=== PATIENT | female | born 1940 | race Two or more races ===

== ENCOUNTER 2024-05-30 16:49 | Inpatient (IN) | payer MEDICARE, MEDICAID ==
[~2024-05-30] VITALS: Ht 157.5 cm; Wt 97.7 kg
--- NOTE | 2024-05-30 17:08 | ED.PDOC ---
HPI (NEURO) HPI Comments 81 year old female presents to the ED with chief complaint of headache. Patient reports that she has been experiencing a headache to her whole head for the past few days. Patient relays that she has history of prefrontal aneurysm and follows up with a neurologist for this problem, however, the pain she is currently feeling is not the same type as she has had before. Patient denies any N/V, blurred vision, chest pain, SOB, dizziness, numbness, or weakness. Patient at arrival had a blood pressure of 187/93 and a temperature of 100.1 Time Seen by MD: 17:05 Reviewed Notes: Nurses Notes, Medications, Allergies Information Source: Patient Mode of Arrival: Ambulatory Severity: Moderate Headache Severity: Moderate Timing: Days Duration: Since onset Prehospital treatment: None Headache Quality: Sharp Headache Location: Generalized Onset: At rest Circumstances: Spontaneous Symptoms: None History of: Known Headache Disorder Modifying factors: Nothing Associated Signs and Symptoms: Headache Past Medical History PAST MEDICAL HISTORY: HTN Past Medical History (Other): Prefrontal Aneurysm Surgical History: Denies all surgeries SPECIAL SERVICES DIRECTOR History: No Pertinent SPECIAL SERVICES DIRECTOR History Family History Family History: Reviewed,noncontributory to illness Social History Smoker: Non-Smoker Alcohol: Denies ETOH Use Drugs: Denies Drug Use Lives In: Home Constitutional: reports: fever, weakness; denies: chills, diaphoresis, fatigue, malaise, sweats, others EENTM: denies: blurred vision, double vision, ear bleeding, ear discharge, ear drainage, ear pain, ear ringing, eye pain, eye redness, hearing loss, mouth pain, mouth swelling, nasal discharge, nose bleeding, nose congestion, nose pain, photophobia, tearing, throat pain, throat swelling, voice changes, others Respiratory: denies: cough, hemoptysis, orthopnea, SOB at rest, shortness of breath, SOB with excertion, stridor, wheezing, others Cardiovascular: denies: chest pain, dizzy spells, diaphoresis, Dyspnea on exertion, edema, irregular heart beat, left arm pain, lightheadedness, palpitations, PND, syncope, others Gastrointestinal: denies: abdomen distended, abdominal pain, blood streaked bowels, constipated, diarrhea, dysphagia, difficulty swallowing, hematemesis, melena, nausea, poor appetite, poor fluid intake, rectal bleeding, rectal pain, vomiting, others Genitourinary: denies: abnormal vagina bleeding, burning, dyspareunia, dysuria, flank pain, frequency, hematuria, incontinence, pain, , vagina discharge, urgency, others Neurological: reports: headache; denies: dizziness, fainting, left sided numbness, left sided weakness, numbness, paresthesia, pre-existing deficit, right sided numbness, right sided weakness, seizure, speech problems, tingling, tremors, weakness, others Musculoskeletal: denies: back pain, gout, joint pain, joint swelling, muscle pain, muscle stiffness, neck pain, others Integumetry: denies: bruises, change in color, change in hair/nails, dryness, laceration, lesions, lumps, rash, wounds, others Allergic/Immunocompromised: denies: Difficulty Healing, Frequent Infections, Hives, Itching, others Hematologic/Lymphatic: denies: anemia, blood clots, easy bleeding, easy bruising, swollen glands, others Endocrine: denies: excessive hunger, excessive sweating, excessive thirst, excessive urination, flushing, intolerance to cold, intolerance to heat, unexplained weight gain, unexplained weight loss, others Psychiatric: denies: anxiety, bipolar disorder, depression, hopeless, panic disorder, schizophrenia, sleepless, suicidal, others All Other Systems: Reviewed and Negative Physical Exam General Appearance: Moderate Distress (Moderate distress due to headache concerns. Patient appears to be in poor overall health.), Obese HEENT: Head (Cranial exam unremarkable. No signs of trauma. No skull depressions or deformities.), Normal ENT Inspection, Pharynx Normal, TMs Normal Neck: Full Range of Motion, Non-Tender, Normal, Normal Inspection Respiratory: Chest Non-Tender, Lungs Clear, No Accessory Muscle Use, No Respiratory Distress, Normal Breath Sounds Cardiovascular: No Edema, No JVD, No Murmur, No Gallop, Normal Peripheral Pulses, Regular Rate/Rhythm Breast Exam: Deferred Gastrointestinal: No Organomegaly, Non Tender, No Pulsatile Mass, Normal Bowel Sounds, Soft Genitalia: Deferred Pelvic: Deferred Rectal: Deferred Extremities: No calf tenderness, Normal capillary refill, Normal inspection, Normal range of motion, Non-tender, No pedal edema Neurologic: Alert, No Motor Deficits, Normal Affect, Normal Mood, No Sensory Deficits Cerebellar Function: Normal Reflexes: Normal Skin: Dry, Normal Color, Warm Lymphatic: No Adenopathy Was a procedure done? Was a procedure done?: No Differential Diagnosis (SZ) Seizure: Hyperventilation, Closed Head Injury, CVA/TIA, Idiopathic, Mass Lesion General Weakness: Anemia, Dehydration, Encephalopathy X-Ray, Labs, Meds, VS Vital Signs Date Time Temp Pulse Resp B/P (MAP) Pulse Ox O2 Delivery O2 Flow Rate FiO2 05/30/24 22:10 63 20 98 Room Air* 0 21 05/30/24 22:10 98.0 63 20 196/77 (116) 98 98.0 05/30/24 17:33 66 05/30/24 17:18 100.1 73 16 187/93 (124) 97 100.1 Lab Test 05/30/24 22:15 05/30/24 17:21 Range/Units Urine Color Light-yellow Yellow Urine Clarity Turbid H Clear Urine pH 5.5 5.0-9.0 Urine Specific [place] 1.018 1.001-1.035 Urine Protein Negative Negative Urine Ketones Negative Negative Urine Blood Negative Negative /uL Urine Nitrite Negative Negative Urine Bilirubin Negative Negative Urine Urobilinogen Normal Negative mg/dL Urine Leukocyte Esterase 3+ Negative /uL Urine RBC 4 0 - 4 /hpf Urine Microscopic WBC 26 H 0-5 /HPF Urine Squamous Epithelial Cells Few <5 /hpf Urine Bacteria None seen None Seen /hpf Urine Mucus Few None Seen Urine Glucose Normal Normal mg/dL White Blood Count 4.5 4.4-10.8 10^3/uL Red Blood Count 4.52 4.0-5.20 10^6/uL Hemoglobin 12.6 12.2-16.2 g/dL Hematocrit 37.7 36.0-46.0 % Mean Corpuscular Volume 83.3 80.0-100.0 fL Mean Corpuscular Hemoglobin 27.9 L 28.0-32.0 pg Mean Corpuscular Hemoglobin Concent 33.5 32.0-36.0 g/dL Red Cell Distribution Width 14.5 H 11.8-14.3 % Platelet Count 198 140-450 10^3/uL Mean Platelet Volume 8.8 6.9-10.8 fL Neutrophils (%) (Auto) 56.8 37.0-80.0 % Lymphocytes (%) (Auto) 30.9 10.0-50.0 % Monocytes (%) (Auto) 7.7 0.0-12.0 % Eosinophils (%) (Auto) 4.0 0.0-7.0 % Basophils (%) (Auto) 0.6 0.0-2.0 % Neutrophils # (Auto) 2.5 1.6-8.6 10 ^3/uL Lymphocytes # (Auto) 1.4 0.4-5.4 10 ^3/uL Monocytes # (Auto) 0.3 0-1.3 10 ^3/uL Eosinophils # (Auto) 0.2 0-0.8 10 ^3/uL Basophils # (Auto) 0 0-0.2 10 ^3/uL Nucleated Red Blood Cells 0.1 % Sodium Level 139 136-145 mmol/L Potassium Level 4.8 3.5-5.1 mmol/L Chloride Level 109 H 98-107 mmol/L Carbon Dioxide Level 23 20-31 mmol/L Anion Gap 7 5-15 Blood Urea Nitrogen 26 H 9-23 mg/dL Creatinine 1.10 H 0.550-1.02 mg/dL Glomerular Filtration Rate Calc 51 >90 mL/min BUN/Creatinine Ratio 23.6 H 10.0-20.0 Serum Glucose 94 74-106 mg/dL Calcium Level 9.6 8.7-10.4 mg/dL Total Bilirubin 0.3 0.2-1.0 mg/dL Aspartate Amino Transferase (AST) 13 13-40 U/L Alanine Aminotransferase (ALT) 11 7-40 U/L Alkaline Phosphatase 97 46-116 U/L Troponin I High Sensitivity 15 </=34 ng/L Total Protein 6.4 5.7-8.2 g/dL Albumin 4.4 3.2-4.8 g/dL Current Medications Medications (Trade) Dose Ordered Sig/Hector Route Start Time Stop Time Status Last Admin Acetaminophen/ Hydrocodone Bitart ([place] 5/325MG Tab) 1 tab ONCE ONCE PO 05/30/24 17:15 05/30/24 17:16 DC 05/30/24 22:[address] [address] Ph: [phone] DIAGNOSTIC IMAGING Diagnostic Imaging Report : [id number] Signed PATIENT: TABATHA PATEL ACCT: [id number] UNIT: [id number] : 09/05/1942 LOC: ER ROOM / BED: / AGE / SEX: 81 / F ADM STATUS: REG ER SERVICE 1701 ORDERING PHYSICIAN: NANI MONSIVAIS PAC PROCEDURE(s): HWOCT - HEAD WITHOUT CONTRAST REASON: Headache evaluation ORDER NUMBER(s): [id number], ACCESSION NUMBER(s): [id number] EXAM: CT HEAD WITHOUT CONTRAST INDICATION: Headache evaluation TECHNIQUE: CT of the head without intravenous contrast. Radiation Dose Information: CT Dose: CTDI volume is 50.7 mGy. Dose-length product is 711.48 mGy*cm The dose indicators for CT are the volume Computed Tomography (CT) Dose Index (CTDIvol) and the Dose Length Product (DLP), and are measured in units of mGy an d mGy-cm, respectively. These indicators are not patient dose, but values generated from the CT scanner acquisition factors. The report includes radiation exposure data for exposures received during this examination. COMPARISON: None FINDINGS: There is no evidence of acute intracranial hemorrhage, extra-axial collection, mass effect, midline shift, herniation or hydrocephalus. The ventricles, sulci and cisterns are age appropriate. The fox-white differentiation is intact. Patchy periventricular and subcortical white matter hypoattenuation is nonspecific but may be related to small vessel ischemic disease. The visualized paranasal sinuses and mastoid air cells are clear. The surrounding soft tissues and osseous structures are unremarkable. IMPRESSION: 1. No acute intracranial hemorrhage 2. No paranasal sinus disease; no mastoid disease. 3. No CT findings of territorial ischemia HS:Y ATED BY: SAAD ROSADO Jr., DO DICTATED DATE/TIME: 05/30/241803 SIGNED BY: SAAD ROSADO Jr., SIGNED DATE/TIME: 05/30/241803 CC: X-Ray, Labs, Meds, VS Comment All studies performed the ED were evaluated by me personally. EKG revealed a sinus rhythm with a rate of 66. Low voltage in precordial leads noted. NC interval of 177 and QT interval of 397. Serum laboratories were unremarkable, but urinalysis confirmed a large urinary tract infection. Patient is blood pressure was concerning at arrival and the patient is a poor historian as the CT did not confirm any form of aneurysm. No acute intracranial process noted. Patient to be admitted for urosepsis concerns as well as hypertensive emergency issues. Was patient should receive IV antibiotics and cardiac evaluation for what appears to be poorly controlled blood pressure concerns. Time of 1ST Reevaluation: 23:24 Reevaluation 1ST: Improved Consultation: PCP, Cardiology Patient Education/Counseling: Diagnosis, Treatment Family Education/Counseling: Diagnosis, Treatment, No Family Present Departure 1 Departure Time of Disposition: 23:24 Impression: Primary Impression: Urinary tract infection Additional Impression: Hypertensive urgency Disposition: ADMITTED INPATIENT Condition: Stable Discharged With: Self Critical Care Note Critical Care Time?: No Stability Stability form required: No Heart Score Heart Score: Heart Score Response (Comments) Value History Slightly Suspicious 0 EKG Normal 0 Age >65 2 Risk Factors 1 or 2 risk factors 1 Troponin Normal limit 0 Total 3 I personally scribed for NANI MONSIVAIS PAC ([email or web address]) on 05/30/24 at 17:08. Electronically submitted by Jaxon Marte ([email or web address]). I personally scribed for NANI MONSIVAIS PAC ([email or web address]) on 05/30/24 at 22:20. Electronically submitted by Wade Erazo ([email or web address]). NANI MONSIVAIS PAC May 30, 2024 17:08
[2024-05-30 17:28] LABS: Basophils # (auto) 0 10 ^3/uL (0-0.2); Basophils % (auto) 0.6 % (0.0-2.0); Eosinophils # (auto) 0.2 10 ^3/uL (0-0.8); Hematocrit 37.7 % (36.0-46.0); Hemoglobin 12.6 g/dL (12.2-16.2); Lymphocytes # (auto) 1.4 10 ^3/uL (0.4-5.4); Lymphocytes % (auto) 30.9 % (10.0-50.0); Mean Corpuscular Hemoglobin 27.9 pg (28.0-32.0); Mean Corpuscular Hgb Conc. 33.5 g/dL (32.0-36.0); Mean Corpuscular Volume 83.3 fL (80.0-100.0); Monocytes # (auto) 0.3 10 ^3/uL (0-1.3); Monocytes % (auto) 7.7 % (0.0-12.0); Neutrophils # (auto) 2.5 10 ^3/uL (1.6-8.6); Neutrophils % (auto) 56.8 % (37.0-80.0); Nucleated Red Blood Cells % 0.1 %; Platelet Count (auto) 198 10^3/uL (140-450); Red Blood Cells 4.52 10^6/uL (4.0-5.20); Red Cell Distribution Width 14.5 % (11.8-14.3); White Blood Cell 4.5 10^3/uL (4.4-10.8)
--- NOTE | 2024-05-30 17:34 | ECG ---
[facility] Test Date: 2024-05-30 Test Time: 17:33:45 Pat Name: TABATHA PATEL Department: ER Room: 0274T Gender: F Algology Teacher: YARITZA : 1940 Requested By: NANI MONSIVAIS Order Number: [id number] Reading MD: Fabrice Altamirano Measurements Intervals [place] Rate: 66 P: 119 WA: 177 QRS: 66 QRSD: 81 T: 24 QT: 397 QTc: 416 Interpretive Statements Sinus rhythm Low voltage, precordial leads Electronically Signed On 06-01-2024 20:32:21 PDT by Fabrice Altamirano Please click the below link to view image of tracing.
[2024-05-30 17:49] LABS: Alanine Aminotransferase 11 U/L (7-40); Albumin 4.4 g/dL (3.2-4.8); Alkaline Phosphatase 97 U/L (46-116); Anion Gap 7 (5-15); Aspartate Aminotransferase 13 U/L (13-40); BUN/Creatinine Ratio 23.6 (10.0-20.0); Bilirubin, Total 0.3 mg/dL (0.2-1.0); Blood Urea Nitrogen 26 mg/dL (9-23); Calcium 9.6 mg/dL (8.7-10.4); Carbon Dioxide 23 mmol/L (20-31); Chloride 109 mmol/L (98-107); Glucose 94 mg/dL (74-106); Potassium 4.8 mmol/L (3.5-5.1); Sodium 139 mmol/L (136-145); Total Protein 6.4 g/dL (5.7-8.2)
--- NOTE | 2024-05-30 18:07 | DVH ---
EXAM: CT HEAD WITHOUT CONTRAST INDICATION: Headache evaluation TECHNIQUE: CT of the head without intravenous contrast. Radiation Dose Information: CT Dose: CTDI volume is 50.7 mGy. Dose-length product is 711.48 mGy*cm The dose indicators for CT are the volume Computed Tomography (CT) Dose Index (CTDIvol) and the Dose Length Product (DLP), and are measured in units of mGy and mGy-cm, respectively. These indicators are not patient dose, but values generated from the CT scanner acquisition factors. The report includes radiation exposure data for exposures received during this examination. COMPARISON: None FINDINGS: There is no evidence of acute intracranial hemorrhage, extra-axial collection, mass effect, midline s hift, herniation or hydrocephalus. The ventricles, sulci and cisterns are age appropriate. The fox-white differentiation is intact. Patchy periventricular and subcortical white matter hypoattenuation is nonspecific but may be related to small vessel ischemic disease. The visualized paranasal sinuses and mastoid air cells are clear. The surrounding soft tissues and osseous structures are unremarkable. IMPRESSION: 1. No acute intracranial hemorrhage 2. No paranasal sinus disease; no mastoid disease. 3. No CT findings of territorial ischemia HS:Y
[2024-05-30 22:10] VITALS: PULSE 63; RESP 20; O2SAT 98
[2024-05-30] MEDS: HYDROcodone-ACET 5/325MG TAB PO ONE (22:25)
[2024-05-30 22:33] LABS: Urine Bacteria None Seen /hpf (None Seen)
[2024-05-30 22:45] LABS: Urine Blood Negative /uL (Negative); Urine Clarity Turbid (Clear); Urine Color Light-Yellow (Yellow); Urine Mucus FEW (None Seen); Urine Protein, UAD Negative (Negative); Urine Specific Gravity 1.018 (1.001-1.035); Urine Squamous Epithelial Cell FEW /hpf (<5); Urine Urobilinogen Normal (Negative); Urine WBC 26 /HPF (0-5); Urine pH 5.5 (5.0-9.0)
--- NOTE | 2024-05-30 23:50 | DVHHPRES ---
History of Present Illness Resident Creating Document: YOLANDA LA RESIDENT History of Present Illness Ms Love is a 83 year old female with past medical history of hypertension, frontal lobe aneurysm, chronic nicotine dependence who presented to the ER with a chief complaint of blurred vision and blackouts for the past 3 days. Reports that her sister recently a month back when she started having headache which are left-sided and frontal lobe region. For the past 3 days, patient has been experiencing blurred vision, and blackout but did not experience any fall or syncopal event. Patient also forgot her daughter's name at 1 point. She reports compliance to her blood pressure medication. Denies any neurological symptoms including weakness, numbness or tingling or sensory loss in the upper and lower extremity. Denies difficulty swallowing, chest pain, palpitations, diaphoresis, nausea vomiting. She reports that her blood pressure was elevated this morning when she checked, she usually takes valsartan 160 mg daily. Patient took double dose of her antihypertensive today. On arrival, in her blood pressure of 187/90 mmHg, 101 F fever, creatinine was 1.1. Past medical history:hypertension, frontal lobe aneurysm, current nicotine dependence Social history: Lives with : Quit smoking (smoked half a pack a day for the past 40 yea), denies drinking, denies illicit drug use Home medications, valsartan 160 mg daily PCP MEDINA Arora Patient seen and examined in the ER. Reports headache. CT head unremarkable. MRI brain pending. Patient received 2 doses of clonidine 0.1 mg p.o by the ER physician, which decreased her pressure. Holding IV nitroglycerin drip Smoke: Quit ALCOHOL: none Drugs: None Lives: with Family Review of Systems Eyes: Vision change Neurological: Confusion Allergies: Coded Allergies: NO KNOWN ALLERGIES (Unverified , 05/30/24) Exam Vital Signs Vital Signs Date Time Temp Pulse Resp B/P (MAP) Pulse Ox O2 Delivery O2 Flow Rate FiO2 05/30/24 22:10 63 20 98 Room Air* 0 21 05/30/24 22:10 98.0 196/77 (116) 98.0 Exam Elevation sitting comfortably in the chair in ER, no acute distress General: Well-built, afebrile, mucosae are moist Cardiovascular: Regular S1 and S2. No murmurs, gallops or rubs. No JVD elevation. 1+ Pitting pedal edema. Respiratory: Normal B/L air entry on room air. Clear lung sounds on auscultation Abdomen: Soft, nontender, nondistended, normoactive bowel sounds, no rebound tenderness, no organomegaly, no masses Genitourinary: Deferred MSK/skin: Mobilizes 4 limbs. Skin is dry and warm Neurological: No motor, no sensitive deficits, normal speech. Pupils are isocoric and reactive. Psych/Mental Status: A/Ox3 Labs/Xrays Labs Test 05/30/24 22:15 05/30/24 17:21 Range/Units Urine Color Light-yellow Yellow Urine Clarity Turbid H Clear Urine pH 5.5 5.0-9.0 Urine Specific [place] 1.018 1.001-1.035 Urine Protein Negative Negative Urine Ketones Negative Negative Urine Blood Negative Negative /uL Urine Nitrite Negative Negative Urine Bilirubin Negative Negative Urine Urobilinogen Normal Negative mg/dL Urine Leukocyte Esterase 3+ Negative /uL Urine RBC 4 0 - 4 /hpf Urine Microscopic WBC 26 H 0-5 /HPF Urine Squamous Epithelial Cells Few <5 /hpf Urine Bacteria None seen None Seen /hpf Urine Mucus Few None Seen Urine Glucose Normal Normal mg/dL White Blood Count 4.5 4.4-10.8 10^3/uL Red Blood Count 4.52 4.0-5.20 10^6/uL Hemoglobin 12.6 12.2-16.2 g/dL Hematocrit 37.7 36.0-46.0 % Mean Corpuscular Volume 83.3 80.0-100.0 fL Mean Corpuscular Hemoglobin 27.9 L 28.0-32.0 pg Mean Corpuscular Hemoglobin Concent 33.5 32.0-36.0 g/dL Red Cell Distribution Width 14.5 H 11.8-14.3 % Platelet Count 198 140-450 10^3/uL Mean Platelet Volume 8.8 6.9-10.8 fL Neutrophils (%) (Auto) 56.8 37.0-80.0 % Lymphocytes (%) (Auto) 30.9 10.0-50.0 % Monocytes (%) (Auto) 7.7 0.0-12.0 % Eosinophils (%) (Auto) 4.0 0.0-7.0 % Basophils (%) (Auto) 0.6 0.0-2.0 % Neutrophils # (Auto) 2.5 1.6-8.6 10 ^3/uL Lymphocytes # (Auto) 1.4 0.4-5.4 10 ^3/uL Monocytes # (Auto) 0.3 0-1.3 10 ^3/uL Eosinophils # (Auto) 0.2 0-0.8 10 ^3/uL Basophils # (Auto) 0 0-0.2 10 ^3/uL Nucleated Red Blood Cells 0.1 % Sodium Level 139 136-145 mmol/L Potassium Level 4.8 3.5-5.1 mmol/L Chloride Level 109 H 98-107 mmol/L Carbon Dioxide Level 23 20-31 mmol/L Anion Gap 7 5-15 Blood Urea Nitrogen 26 H 9-23 mg/dL Creatinine 1.10 H 0.550-1.02 mg/dL Glomerular Filtration Rate Calc 51 >90 mL/min BUN/Creatinine Ratio 23.6 H 10.0-20.0 Serum Glucose 94 74-106 mg/dL Calcium Level 9.6 8.7-10.4 mg/dL Total Bilirubin 0.3 0.2-1.0 mg/dL Aspartate Amino Transferase (AST) 13 13-40 U/L Alanine Aminotransferase (ALT) 11 7-40 U/L Alkaline Phosphatase 97 46-116 U/L Troponin I High Sensitivity 15 </=34 ng/L Total Protein 6.4 5.7-8.2 g/dL Albumin 4.4 3.2-4.8 g/dL Assessment/Plan Assessment/Plan Rule out stroke Hypertensive encephalopathy Sepsis secondary to acute cystitis Acute Cystitis VIVI, likely vasomotor mediated History of frontal cerebral aneurysm Plan: EKg Shows NSR. Tropes WNL. CT head unremarkable. Follow up with the MRI brain, carotid duplex, echocardiogram, renal artery ultrasound Continue aspirin 81 mg daily, atorvastatin 40 mg daily IV nitroglycerin drip started 05/31 IV Ceftriaxone 1 g daily, blood culture pending Home medication valsartan 160 mg daily Patient received 2 doses of clonidine 0.1 mg p.o by the ER physician, which decreased her pressure. Holding IV nitroglycerin drip DVT prophylaxis SCDs Protonix 40 mg daily Plan discussed with patient in which all questions have been answered Goals of care discussed for more than 20 minutes, full code status Case discussed with Dr. Malone Plan discussed with: Patient Date of Service: May 30, 2024 Billing Provider: RAISA MALONE MD Common Visit Codes: [id number] INP/OBS CARE (HIGH) YOLANDA LA RESIDENT May 30, 2024 23:50
[2024-05-31] MEDS ORDERED: HYDROcodone-ACET 5/325MG TAB PO PRN (00:30)
[2024-05-31] MEDS ORDERED: MORPHINE SULFATE INJ 2 MG/ml SYRG IV PRN (00:30)
[2024-05-31] MEDS ORDERED: ACETAMINOPHEN 500 MG TAB or CAP PO PRN (00:30)
--- NOTE | 2024-05-31 00:46 | DVH ---
CHEST RADIOGRAPH Indication: htn Technique: Single frontal view of the chest was obtained COMPARISON: None FINDINGS: Lines and Tubes: None Lungs: Clear Pleura: No effusion. No pneumothorax. Cardiomediastinal contours: Unremarkable Bones: Unremarkable IMPRESSION: 1. No acute disease.
[2024-05-31] MEDS: cefTRIAXone 1GM/50ML D5W 50 ML IV ONE (01:10)
[2024-05-31] MEDS: ASPirin-EC 81 mg tab PO ONE (01:10)
[2024-05-31] MEDS: cloNIDine HCL 0.1 MG TAB PO ONE (01:11)
[2024-05-31] MEDS: ACETAMINOPHEN 325 MG TAB PO ONE (01:20)
[2024-05-31 01:47] LABS: COVID19 ANTIGEN SOFIA FIA NEGATIVE (NEGATIVE)
[2024-05-31 01:48] LABS: Rapid Influenza A Negative (Negative); Rapid Influenza B Negative (Negative)
[2024-05-31] MEDS: ATORVASTATIN 20 MG TAB PO ONE (02:09)
[2024-05-31] MEDS: PANTOPRAZOLE 40 MG/10 ML VIAL INJ IV ONE (02:09)
[2024-05-31] MEDS ORDERED: ASPI1TAB20 PO (03:06)
[2024-05-31] MEDS ORDERED: VALS1TAB58 PO (03:06)
[2024-05-31 04:49] LABS: Uric Acid 4.3 mg/dL (3.1-7.8)
[2024-05-31 04:50] LABS: Magnesium 1.8 mg/dL (1.6-2.6)
[2024-05-31 04:51] LABS: INR 1.03 (0.9-1.15); Partial Thromboplastin Time 28.9 SEC (24.5-34.5); Prothrombin Time 10.9 sec (9.3-11.8)
[2024-05-31] MEDS: KETOROLAC TROMETH 30 MG/ML 1ML VIAL IV ONE (07:30)
[2024-05-31] MEDS: NITROGLYCERIN 50MG/250ML 250 ML IV SCH (07:30)
[2024-05-31 08:30] VITALS: PULSE 60; RESP 13; O2SAT 98
[2024-05-31] MEDS: CYANOCOBALAMIN (B-12) 1000 MCG/1 ML VIAL IM ONE (09:44)
[2024-05-31] MEDS: VALSARTAN 80 MG TAB PO SCH (11:57)
[2024-05-31] MEDS: ASPirin-EC 81 mg tab PO SCH (11:57)
--- NOTE | 2024-05-31 13:22 | DVH ---
PROCEDURE: MRI BRAIN HEAD WO CONTRAST INDICATION: r/o mass, stroke. blurred vision, black outs EXAM DATE: 05/31/2024 12:02 PM COMPARISON: None TECHNIQUE: MRI of the brain without intravenous contrast. Comments: There is mild motion artifact. FINDINGS: Diffusion weighted images of the brain demonstrate no evidence of acute infarction. There is no evidence of acute intracranial hemorrhage, extra-axial collection, mass effect, midline s hift, herniation or hydrocephalus. The ventricles, sulci and cisterns appear age appropriate. Partially empty sella is likely age relate d. There are no signal abnormalities on the susceptibility weighted sequences. The major vascular flow voids are present. The visualized paranasal sinuses and mastoid air cells are clear. The surrounding soft tissues and o sseous structures are unremarkable. Bilateral lens replacements. IMPRESSION: No evidence of acute intracranial abnormalities.
--- NOTE | 2024-05-31 13:46 | DVH ---
Carotid Duplex Clinical History: blackouts, blurred vison HTN Comparison: None Technique: Duplex Doppler evaluation of the extracranial carotid and vertebral arteries including color Doppler and spectral/pulsed waveform analysis was performed. Findings: RIGHT SIDE: The peak systolic velocities are 56 cm/s in the CCA, 123 cm/s in the ICA. The ICA/CCA ratio is 2.2. Visually there is mild atherosclerotic plaque at the carotid bulb. The external carotid artery is patent with peak systolic velocity of 52 cm/s proximally. There is appropriate antegrade flow in the right vertebral artery. LEFT SIDE: The peak systolic velocities are 61 cm/s in the CCA, 115 cm/s in the ICA. The ICA/CCA ratio is 1.9. Visually there is mild atherosclerotic plaque at the carotid bulb. The external carotid artery is patent with peak systolic velocity of 62 cm/s proximally. There is appropriate antegrade flow in the left vertebral artery. IMPRESSION: 1. Suggestion of 50-69% narrowing at the right carotid bulb based on the ICA/ CCA ratio. 2. Less than 50% narrowing at the left carotid bulb. Reference: Radiology 2003; 229:340-346 Normal ICA PSV is <125 cm/sec and no plaque or intimal thickening is visible sonographically additional criteria include ICA/CCA PSV ratio <2.0 and ICA EDV <40 cm/sec <50% ICA stenosis ICA PSV is <125 cm/sec and plaque or intimal thickening is visible sonographically additional criteria include ICA/CCA PSV ratio <2.0 and ICA EDV <40 cm/sec 50-69% ICA stenosis ICA PSV is 125-230 cm/sec and plaque is visible sonographically additional criteria include ICA/CCA PSV ratio of 2.0-4.0 and ICA EDV of 40-100 cm/sec 70% ICA stenosis but less than near occlusion ICA PSV is >230 cm/sec and visible plaque and luminal narrowing are seen at fox-scale and color Dopp ler ultrasound (the higher the Doppler parameters lie above the threshold of 230 cm/sec, the greater the likelihood of severe disease) additional criteria include ICA/CCA PSV ratio >4 and ICA EDV >100 cm/sec
--- NOTE | 2024-05-31 14:29 | DVHPN2 ---
Reviewed: Care Plan, H&P, Labs, Medications, Previous Orders, Radiology Changes from previous H/P or p: No Changes Eyes: Vision change Objective Vitals Vital Signs Date Time Temp Pulse Resp B/P (MAP) Pulse Ox O2 Delivery O2 Flow Rate FiO2 05/31/24 11:57 132/54 05/31/24 10:00 55 12 98 05/31/24 08:30 Room Air* 0 21 05/31/24 08:00 98.0 98.0 Medications Current Medications Medications Dose Ordered Sig/Hector Route Start Time Stop Time Status Last Admin Dose Admin Nitroglycerin 250 ml @ 1.5 mls/hr Q24H IV 05/31/24 00:15 Aspirin 81 mg DAILY PO 05/31/24 10:00 05/31/24 11:57 81 MG Valsartan 160 mg DAILY PO 05/31/24 10:00 05/31/24 11:57 160 MG Acetaminophen 500 mg Q4HPRN PRN PO 05/31/24 00:30 Acetaminophen/ Hydrocodone Bitart 1 tab Q4HPRN PRN PO 05/31/24 00:30 Morphine Sulfate 1 mg Q4HPRN PRN IV 05/31/24 00:30 Atorvastatin Calcium 40 mg HS PO 05/31/24 22:00 Pantoprazole Sodium 40 mg DAILY IV 06/01/24 10:00 Laboratory Results Laboratory Tests 05/30/24 17:21 Chemistry Test 05/30/24 17:21 05/31/24 03:52 Albumin 4.4 g/dL (3.2-4.8) Calcium Level 9.6 mg/dL (8.7-10.4) Total Protein 6.4 g/dL (5.7-8.2) Magnesium Level 1.8 mg/dL (1.6-2.6) Coagulation Test 05/31/24 03:52 Prothrombin Time 10.9 sec (9.3-11.8) Prothrombin Time INR 1.03 (0.9-1.15) Activated Partial Thromboplast Time 28.9 SEC (24.5-34.5) Cardiac Markers Test 05/31/24 03:52 B-Type Natriuretic Peptide 60.93 pg/mL (0-100) LFT Test 05/30/24 17:21 Alanine Aminotransferase (ALT) 11 U/L (7-40) Alkaline Phosphatase 97 U/L (46-116) Aspartate Amino Transferase (AST) 13 U/L (13-40) Total Bilirubin 0.3 mg/dL (0.2-1.0) HgA1c, TSH Test 05/31/24 03:52 Hemoglobin A1c 5.4 % A1C (<5.7) Thyroid Stimulating Hormone (TSH) 3.04 uIU/mL (0.55-4.78) Urinalysis Test 05/30/24 22:15 Urine Color Light-yellow (Yellow) Urine Clarity Turbid (Clear) H Urine pH 5.5 (5.0-9.0) Urine Specific [place] 1.018 (1.001-1.035) Urine Protein Negative (Negative) Urine Ketones Negative (Negative) Urine Blood Negative /uL (Negative) Urine Nitrite Negative (Negative) Urine Bilirubin Negative (Negative) Urine Urobilinogen Normal mg/dL (Negative) Urine Leukocyte Esterase 3+ /uL (Negative) Urine RBC 4 /hpf (0 - 4) Urine Microscopic WBC 26 /HPF (0-5) H Urine Squamous Epithelial Cells Few /hpf (<5) Urine Bacteria None seen /hpf (None Seen) Urine Mucus Few (None Seen) Urine Glucose Normal mg/dL (Normal) Labs and/or images reviewed: Labs reviewed by me, Image(s) reviewed by me Assessment/Plan Assessment/Plan Blurry vision rule out stroke: CT head negative, MRI brain negative, 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 Cuellar History of frontal aneurysm Hypertension Chronic current smoker: Counseling Flu test negative COVID test negative Mild UTI Plan discussed with: Patient Date of Service: May 31, 2024 Billing Provider: ROSITA SUBRAMANIAN MD Common Visit Codes: [id number] INP/OBS CARE(HIGH) ROSITA SUBRAMANIAN MD May 31, 2024 14:29
--- NOTE | 2024-05-31 15:26 | DVH ---
CLINICAL HISTORY: Hypertension. TECHNIQUE: Grayscale sonographic imaging of both kidneys was performed. Duplex doppler ultrasound of the renal arteries and abdominal aorta was performed, with color flow and spectral waveform analysis . COMPARISON: None FINDINGS: Right kidney measures 9.2 cm in length. No hydronephrosis. Cortical echogenicity and corti vega thickness are within normal limits. Left kidney measures 6.8 cm in length. No hydronephrosis. Lef t cortical echogenicity and cortical thickness are within normal limits. Peak systolic velocity in the right renal artery measures 63 cm/sec with renal to aortic ratio of 0.9 . Peak systolic velocity in the left renal artery measures 89 cm/sec with renal to aortic ratio of 1. 2. Resistive indices measured 0.77 on the right and 0.88 on the left. Aorta measures 1.[address] Peak systolic velocity in the abdominal aorta measures 71 cm/sec. IMPRESSION: 1. No evidence of significant renal artery stenosis. 2. Left kidney is small in size. No hydronephrosis in either kidney. 3. 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
[2024-05-31] MEDS ORDERED: LISI20TA56 PO (16:15)
[2024-05-31 16:39] VITALS: O2SAT 98
[2024-05-31 17:00] VITALS: BP 165/62; PULSE 70; RESP 18; TEMP 98.4; O2SAT 96
--- NOTE | 2024-05-31 19:49 | DVHSR ---
APPROVED REPORT EXAM: Two-dimensional and M-mode echocardiogram with Doppler and color Doppler. Blood Pressure: 127/55 mmHg INDICATION Hypertension Dizziness and Vertigo Syncope RISK FACTORS Obesity: Height: 5' 2", Weight: 209 DIMENSIONS LVDd3.8 (3.8-5.7cm)LA (2D)3.5 (1.9-4.0cm)Aortic Root2.7 (2.0-3.7cm) LVDs3.0 (2.5-4.0cm)LA (MM) (1.9-4.0cm)Aortic Cusp Exc1.5 (1.5-2.0cm) EF (%) 60.0 (55-70%)Rt. Atrium3.6 (1.9-4.0cm)Asc. Aorta cm IVSd1.1 (0.7-1.1cm)RV (D) (1.8-2.4cm) PWd1.0 (0.7-1.1cm) Mitral Valve MitralMitral Stenosis E wave0.70m/sMV Mean GR.mmHg A wave1.10m/sMV Peak GR.mmHg E/A ratio0.62D MVAcm2 Aortic Valve Aortic ValveAortic Stenosis V10.80m/Miguel Angel Mean GR.3mmHg V21.00m/Miguel Angel Peak GR.5mmHg LVOT Diameter2.0 (1.8-2.4cm)Doppler AVA2.51cm2 Pulmonic Valve V20.60m/s Tricuspid Valve TR Velocity2.10m/s [id number] Conclusion LV EF IS 65% NORMAL VALVES NORMAL RV FUNCTION NO EFFUSION
[2024-05-31 20:00] VITALS: PULSE 61; PULSE 64; RESP 18; O2SAT 96
[2024-05-31 21:00] VITALS: BP 156/64; PULSE 64; RESP 18; TEMP 97.6; O2SAT 96
[2024-05-31] MEDS: ATORVASTATIN 20 MG TAB PO SCH (21:33)
[2024-06-01] VITALS (7 sets, daily range): BP systolic 134–187; BP diastolic 51–68; PULSE 60–78; RESP 17–18; TEMP 97.6–98.2; O2SAT 96–99
[2024-06-01 08:27] LABS: Basophils # (auto) 0 10 ^3/uL (0-0.2); Basophils % (auto) 0.6 % (0.0-2.0); Eosinophils # (auto) 0.2 10 ^3/uL (0-0.8); Hematocrit 37.4 % (36.0-46.0); Hemoglobin 12.6 g/dL (12.2-16.2); Lymphocytes # (auto) 1.1 10 ^3/uL (0.4-5.4); Lymphocytes % (auto) 25.5 % (10.0-50.0); Mean Corpuscular Hemoglobin 27.9 pg (28.0-32.0); Mean Corpuscular Hgb Conc. 33.6 g/dL (32.0-36.0); Mean Corpuscular Volume 82.8 fL (80.0-100.0); Monocytes # (auto) 0.3 10 ^3/uL (0-1.3); Monocytes % (auto) 6.9 % (0.0-12.0); Neutrophils # (auto) 2.8 10 ^3/uL (1.6-8.6); Nucleated Red Blood Cells % 0.3 %; Platelet Count (auto) 191 10^3/uL (140-450); Red Blood Cells 4.52 10^6/uL (4.0-5.20); Red Cell Distribution Width 14.4 % (11.8-14.3); White Blood Cell 4.4 10^3/uL (4.4-10.8)
[2024-06-01 08:50] LABS: Alanine Aminotransferase 11 U/L (7-40); Albumin 4.1 g/dL (3.2-4.8); Alkaline Phosphatase 100 U/L (46-116); Anion Gap 7 (5-15); Aspartate Aminotransferase 14 U/L (13-40); BUN/Creatinine Ratio 18.3 (10.0-20.0); Bilirubin, Total 0.6 mg/dL (0.2-1.0); Blood Urea Nitrogen 20 mg/dL (9-23); Calcium 9.5 mg/dL (8.7-10.4); Carbon Dioxide 24 mmol/L (20-31); Glucose 90 mg/dL (74-106); Potassium 4.5 mmol/L (3.5-5.1); Sodium 139 mmol/L (136-145); Total Protein 6.2 g/dL (5.7-8.2)
[2024-06-01 08:51] LABS: Chloride 108 mmol/L (98-107)
[2024-06-01] MEDS: PANTOPRAZOLE 40 MG/10 ML VIAL INJ IV SCH (09:30)
--- NOTE | 2024-06-01 12:38 | DVHPN2 ---
Reviewed: Care Plan, H&P, Labs, Medications, Previous Orders, Radiology Changes from previous H/P or p: No Changes Eyes: Vision change Objective Vitals Vital Signs Date Time Temp Pulse Resp B/P (MAP) Pulse Ox O2 Delivery O2 Flow Rate FiO2 06/01/24 09:26 134/58 06/01/24 09:00 98.1 60 17 98 98.1 06/01/24 08:05 Room Air* 0 21 Intake/Output Intake and Output 06/01/24 07:00 Intake Total 0 ml Balance 0 ml Intake Oral 0 ml # Voids 2 Medications Current Medications Medications Dose Ordered Sig/Hector Route Start Time Stop Time Status Last Admin Dose Admin Aspirin 81 mg DAILY PO 05/31/24 10:00 06/01/24 09:29 81 MG Valsartan 160 mg DAILY PO 05/31/24 10:00 06/01/24 09:26 160 MG Acetaminophen 500 mg Q4HPRN PRN PO 05/31/24 00:30 Acetaminophen/ Hydrocodone Bitart 1 tab Q4HPRN PRN PO 05/31/24 00:30 Morphine Sulfate 1 mg Q4HPRN PRN IV 05/31/24 00:30 Atorvastatin Calcium 40 mg HS PO 05/31/24 22:00 05/31/24 21:33 40 MG Pantoprazole Sodium 40 mg DAILY IV 06/01/24 10:00 06/01/24 09:30 40 MG Laboratory Results Laboratory Tests 06/01/24 07:48 Chemistry Test 06/01/24 07:48 Albumin 4.1 g/dL (3.2-4.8) Calcium Level 9.5 mg/dL (8.7-10.4) Total Protein 6.2 g/dL (5.7-8.2) LFT Test 06/01/24 07:48 Alanine Aminotransferase (ALT) 11 U/L (7-40) Alkaline Phosphatase 100 U/L (46-116) Aspartate Amino Transferase (AST) 14 U/L (13-40) Total Bilirubin 0.6 mg/dL (0.2-1.0) Urinalysis Test 05/30/24 22:15 Urine Color Light-yellow (Yellow) Urine Clarity Turbid (Clear) H Urine pH 5.5 (5.0-9.0) Urine Specific [place] 1.018 (1.001-1.035) Urine Protein Negative (Negative) Urine Ketones Negative (Negative) Urine Blood Negative /uL (Negative) Urine Nitrite Negative (Negative) Urine Bilirubin Negative (Negative) Urine Urobilinogen Normal mg/dL (Negative) Urine Leukocyte Esterase 3+ /uL (Negative) Urine RBC 4 /hpf (0 - 4) Urine Microscopic WBC 26 /HPF (0-5) H Urine Squamous Epithelial Cells Few /hpf (<5) Urine Bacteria None seen /hpf (None Seen) Urine Mucus Few (None Seen) Urine Glucose Normal mg/dL (Normal) Labs and/or images reviewed: Labs reviewed by me, Image(s) reviewed by me Assessment/Plan Assessment/Plan Blurry vision rule out stroke: CT head negative, MRI brain negative, 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 Cuellar pending, echo 65 percent ejection fraction History of frontal aneurysm Hypertension Chronic current smoker: Counseling Flu test negative COVID test negative Mild UTI Plan discussed with: Patient My Orders Orders - ROSITA SUBRAMANIAN MD Procedure Category Date Status Time * Neurology Consult CONS 05/31/24 Transmitted 14:26 Date of Service: Jun 01, 2024 Billing Provider: ROSITA SUBRAMANIAN MD Common Visit Codes: [id number] INP/OBS CARE(HIGH) ROSITA SUBRAMANIAN MD Jun 01, 2024 12:38
[2024-06-01] MEDS: cloNIDine HCL 0.1 MG TAB PO ONE (21:38)
[2024-06-02] VITALS (8 sets, daily range): BP systolic 104–147; BP diastolic 41–61; PULSE 54–61; RESP 17–18; TEMP 97.4–98.6; O2SAT 94–100
--- NOTE | 2024-06-02 13:47 | DVHPN2 ---
Reviewed: Care Plan, H&P, Labs, Medications, Previous Orders, Radiology Changes from previous H/P or p: No Changes Eyes: Vision change Objective Vitals Vital Signs Date Time Temp Pulse Resp B/P (MAP) Pulse Ox O2 Delivery O2 Flow Rate FiO2 06/02/24 10:03 122/50 06/02/24 09:00 97.6 54 17 98 97.6 06/02/24 08:05 Room Air* 0 21 Intake/Output Intake and Output 06/02/24 07:00 Intake Total 0 ml Output Total 0 ml Balance 0 ml Intake Oral 0 ml Output Urine Total 0 ml # Voids 3 Medications Current Medications Medications Dose Ordered Sig/Hector Route Start Time Stop Time Status Last Admin Dose Admin Aspirin 81 mg DAILY PO 05/31/24 10:00 06/02/24 10:02 81 MG Valsartan 160 mg DAILY PO 05/31/24 10:00 06/02/24 10:03 160 MG Acetaminophen 500 mg Q4HPRN PRN PO 05/31/24 00:30 Acetaminophen/ Hydrocodone Bitart 1 tab Q4HPRN PRN PO 05/31/24 00:30 Morphine Sulfate 1 mg Q4HPRN PRN IV 05/31/24 00:30 Atorvastatin Calcium 40 mg HS PO 05/31/24 22:00 06/01/24 21:38 40 MG Pantoprazole Sodium 40 mg DAILY IV 06/01/24 10:00 06/02/24 10:04 40 MG Laboratory Results Laboratory Tests 06/01/24 07:48 Urinalysis Test 05/30/24 22:15 Urine Color Light-yellow (Yellow) Urine Clarity Turbid (Clear) H Urine pH 5.5 (5.0-9.0) Urine Specific [place] 1.018 (1.001-1.035) Urine Protein Negative (Negative) Urine Ketones Negative (Negative) Urine Blood Negative /uL (Negative) Urine Nitrite Negative (Negative) Urine Bilirubin Negative (Negative) Urine Urobilinogen Normal mg/dL (Negative) Urine Leukocyte Esterase 3+ /uL (Negative) Urine RBC 4 /hpf (0 - 4) Urine Microscopic WBC 26 /HPF (0-5) H Urine Squamous Epithelial Cells Few /hpf (<5) Urine Bacteria None seen /hpf (None Seen) Urine Mucus Few (None Seen) Urine Glucose Normal mg/dL (Normal) Labs and/or images reviewed: Labs reviewed by me, Image(s) reviewed by me Assessment/Plan Assessment/Plan Blurry vision rule out stroke: CT head negative, MRI brain negative, 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 Cuellar pending, echo 65 percent ejection fraction History of frontal aneurysm Hypertension Chronic current smoker: Counseling Flu test negative COVID test negative Mild UTI Plan discussed with: Patient Date of Service: Jun 02, 2024 Billing Provider: ROSITA SUBRAMANIAN MD Common Visit Codes: [id number] INP/OBS CARE(HIGH) ROSITA SUBRAMANIAN MD Jun 02, 2024 13:47
[2024-06-03] VITALS (7 sets, daily range): BP systolic 127–172; BP diastolic 44–59; PULSE 57–70; RESP 16–18; TEMP 97.8–99.7; O2SAT 97–99
--- NOTE | 2024-06-03 10:34 | DVHPN2 ---
Reviewed: Care Plan, H&P, Labs, Medications, Previous Orders, Radiology Changes from previous H/P or p: No Changes Eyes: Vision change Objective Vitals Vital Signs Date Time Temp Pulse Resp B/P (MAP) Pulse Ox O2 Delivery O2 Flow Rate FiO2 06/03/24 09:00 99.7 66 17 157/44 (81) 98 99.7 06/03/24 08:05 Room Air* 0 21 Intake/Output Intake and Output 06/03/24 07:00 Intake Total 1798 ml Balance 1798 ml Intake Oral 1798 ml # Voids 5 # Bowel Movements 1 Medications Current Medications Medications Dose Ordered Sig/Hector Route Start Time Stop Time Status Last Admin Dose Admin Aspirin 81 mg DAILY PO 05/31/24 10:00 06/03/24 08:51 81 MG Valsartan 160 mg DAILY PO 05/31/24 10:00 06/03/24 08:52 160 MG Acetaminophen 500 mg Q4HPRN PRN PO 05/31/24 00:30 Acetaminophen/ Hydrocodone Bitart 1 tab Q4HPRN PRN PO 05/31/24 00:30 Morphine Sulfate 1 mg Q4HPRN PRN IV 05/31/24 00:30 Atorvastatin Calcium 40 mg HS PO 05/31/24 22:00 06/02/24 21:47 40 MG Pantoprazole Sodium 40 mg DAILY IV 06/01/24 10:00 06/03/24 08:50 40 MG Laboratory Results Laboratory Tests 06/01/24 07:48 Urinalysis Test 05/30/24 22:15 Urine Color Light-yellow (Yellow) Urine Clarity Turbid (Clear) H Urine pH 5.5 (5.0-9.0) Urine Specific [place] 1.018 (1.001-1.035) Urine Protein Negative (Negative) Urine Ketones Negative (Negative) Urine Blood Negative /uL (Negative) Urine Nitrite Negative (Negative) Urine Bilirubin Negative (Negative) Urine Urobilinogen Normal mg/dL (Negative) Urine Leukocyte Esterase 3+ /uL (Negative) Urine RBC 4 /hpf (0 - 4) Urine Microscopic WBC 26 /HPF (0-5) H Urine Squamous Epithelial Cells Few /hpf (<5) Urine Bacteria None seen /hpf (None Seen) Urine Mucus Few (None Seen) Urine Glucose Normal mg/dL (Normal) Labs and/or images reviewed: Labs reviewed by me, Image(s) reviewed by me Assessment/Plan Assessment/Plan Blurry vision rule out stroke: CT head negative, MRI brain negative, 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 Cuellar pending, echo 65 percent ejection fraction History of frontal aneurysm Hypertension Chronic current smoker: Counseling Flu test negative COVID test negative Mild UTI Plan discussed with: Patient My Orders Orders - ROSITA SUBRAMANIAN MD Procedure Category Date Status Time Cardiac DIET 06/02/24 Transmitted Diet-2gna,Lofat,Lochol Dinner Date of Service: Jun 03, 2024 Billing Provider: ROSITA SUBRAMANIAN MD Common Visit Codes: [id number] INP/OBS CARE(HIGH) ROSITA SUBRAMANIAN MD Jun 03, 2024 10:34
--- NOTE | 2024-06-03 23:22 | DVHINCON2 ---
Date of service: Jun 03, [address] Woodward Reason for Consultation Possible stroke, blurry vision History of Present Illness Ms. Love he was 89 years old right-handed female with a history of hypertension, brain aneurysm, the patient was came to the [facility] on 06/02/2024 with a chief complaint of headache. When she came to the hospital, her blood pressure was extremely high, she was had fever. At this time, she is alert and fully oriented, she provided the following history The history he provides is not exactly same as previous documentation On 05/30/2024, when she was standing at home, she suddenly developed blurry vision, and her brain was foggy, but meanwhile she knew where she was, and she knows time and was she was supposed to do, the event was about 30-40 seconds, right after that, she did not remember her daughter's name when she tried to call her. She was never had similar problem before, she denies a history of stroke or confusional spells. She has been doing fine in the hospital. The patient was denies associated focal weakness numbness or unsteadiness. She used to have random mild occasional headache, but since the end of 04/2024, she has brief spell of "flushing headache" about twice daily in either side of the head. The head lasts for seconds of time She was said to have brain aneurysm, she saw 2 neurologists, both recommended aspirin 81 mg daily Urinalysis, 05/30/2024: WBC: 26, urine leukocyte esterase: 3+ CBC, 06/01/2024: Unremarkable BUN/CR, 06/01/2024: 20/1.09 Liver function tests, 06/01/2024: Unremarkable Vitamin B12, 05/31/2024: 303 TSH, 05/31/24: 3.0 Carotid Doppler, 05/31/2024: 1. Suggestion of 50-69% narrowing at the right carotid bulb based on the ICA/ CCA ratio. 2. Less than 50% narrowing at the left carotid bulb. MRI brain, 05/31/2024: No evidence of acute intracranial abnormalities Past Medical History Hypertension, brain aneurysm Past Surgical History None Family History: Patient reports no known family medical history. Family History Hypertension, diabetes Social History She used to smoke tobacco, but denies a history of alcohol or recreational substance abuse Allergies: Coded Allergies: NO KNOWN ALLERGIES (Unverified , 05/30/24) Home Meds Reported Medications Lisinopril (Lisinopril) 20 Mg Tab, 1 TAB PO DAILY 05/31/24 Valsartan (Valsartan) 160 Mg Tab, 160 MG PO, TAB 05/31/24 Aspirin (Aspir-81) 81 Mg Tab, 1 TAB PO DAILY, #30 TAB 5 Refills 05/31/24 Review of Systems As above, the other systems are negative Vital Signs Vital Signs Date Time Temp Pulse Resp B/P (MAP) Pulse Ox O2 Delivery O2 Flow Rate FiO2 06/03/24 20:56 97.8 65 18 148/54 (85) 99 97.8 06/03/24 08:05 Room Air* 0 21 Physical Exam GENERAL EXAM: General: the patient is well developed and nourished. No acute distress. HEENT: Normocephalic, neck is supple, no carotid bruits. No mass. RESPIRATORY: Normal respiratory effort with symmetrical lung expansion. Lungs clear to auscultation. CARDIOVASCULAR: Regular rate and rhythm with no murmurs. S1, S2. ABDOMEN: Soft, nontender, normal bowel sound NEUROLOGICAL: MENTAL STATUS: Awake and alert. Oriented to person, place, time and general circumstances. Able to give personal history SPEECH, LANGUAGE, HIGHER CORTICAL FUNCTION: no aphasia or dysathria. CRANIAL NERVES: #2: Intact visual viveros to confrontation. The optic discs were sharp. #3,4,6: Pupils are equal, round and reactive. EOMs full and conjugate. No nystagmus. #5: Facial sensation intact in all three divisions bilaterally. Mandibular strength intact. #7: Facial muscles symmetrical and strength intact. #8: Hearing grossly normal to voice. #9,10: Uvula and soft palate rise in the midline. Swallow and voice are normal. #11: Trapezius and sternomastoid strength intact bilaterally. #12: Tongue midline. No fasciculations or atrophy. SENSATION: Sensation to touch and pinprick is normal. MOTOR: Normal tone in the upper and lower extremity. Normal muscle bulk. No fasciculations. No abnormal movements or posturing. Muscle strength of the major groups in the upper extremities is 5/5. Muscle strength of the major groups in the lower extremities is 5/5. REFLEXES: Deep tendon reflexes are symmetrical. No pathological reflexes. CEREBELLAR/COORDINATION: Finger to nose is normal bilaterally. GAIT/STATION: deferred. Labs/Diagnostic Data Labs Test 06/01/24 07:48 05/31/24 03:52 05/31/24 01:23 05/31/24 01:22 Range/Units White Blood Count 4.4 4.4-10.8 10^3/uL Red Blood Count 4.52 4.0-5.20 10^6/uL Hemoglobin 12.6 12.2-16.2 g/dL Hematocrit 37.4 36.0-46.0 % Mean Corpuscular Volume 82.8 80.0-100.0 fL Mean Corpuscular Hemoglobin 27.9 L 28.0-32.0 pg Mean Corpuscular Hemoglobin Concent 33.6 32.0-36.0 g/dL Red Cell Distribution Width 14.4 H 11.8-14.3 % Platelet Count 191 140-450 10^3/uL Mean Platelet Volume 9.4 6.9-10.8 fL Neutrophils (%) (Auto) 63.0 37.0-80.0 % Lymphocytes (%) (Auto) 25.5 10.0-50.0 % Monocytes (%) (Auto) 6.9 0.0-12.0 % Eosinophils (%) (Auto) 4.0 0.0-7.0 % Basophils (%) (Auto) 0.6 0.0-2.0 % Neutrophils # (Auto) 2.8 1.6-8.6 10 ^3/uL Lymphocytes # (Auto) 1.1 0.4-5.4 10 ^3/uL Monocytes # (Auto) 0.3 0-1.3 10 ^3/uL Eosinophils # (Auto) 0.2 0-0.8 10 ^3/uL Basophils # (Auto) 0 0-0.2 10 ^3/uL Nucleated Red Blood Cells 0.3 % Sodium Level 139 136-145 mmol/L Potassium Level 4.5 3.5-5.1 mmol/L Chloride Level 108 H 98-107 mmol/L Carbon Dioxide Level 24 20-31 mmol/L Anion Gap 7 5-15 Blood Urea Nitrogen 20 9-23 mg/dL Creatinine 1.09 H 0.550-1.02 mg/dL Glomerular Filtration Rate Calc 51 >90 mL/min BUN/Creatinine Ratio 18.3 10.0-20.0 Serum Glucose 90 74-106 mg/dL Calcium Level 9.5 8.7-10.4 mg/dL Total Bilirubin 0.6 0.2-1.0 mg/dL Aspartate Amino Transferase (AST) 14 13-40 U/L Alanine Aminotransferase (ALT) 11 7-40 U/L Alkaline Phosphatase 100 46-116 U/L Total Protein 6.2 5.7-8.2 g/dL Albumin 4.1 3.2-4.8 g/dL Prothrombin Time 10.9 9.3-11.8 sec Prothrombin Time INR 1.03 0.9-1.15 Activated Partial Thromboplast Time 28.9 24.5-34.5 SEC Hemoglobin A1c 5.4 <5.7 % A1C Uric Acid 4.3 3.1-7.8 mg/dL Magnesium Level 1.8 1.6-2.6 mg/dL Troponin I High Sensitivity 20 </=34 ng/L B-Type Natriuretic Peptide 60.93 0-100 pg/mL Vitamin B12 Level 303 211-911 pg/mL Vitamin D 25-Hydroxy 48.0 30.0-100 ng/mL Thyroid Stimulating Hormone (TSH) 3.04 0.55-4.78 uIU/mL Influenza Type A Antigen Negative Negative Influenza Type B Antigen Negative Negative SARS-CoV-2 Antigen (Rapid) Negative NEGATIVE Test 05/30/24 22:15 Range/Units Urine Color Light-yellow Yellow Urine Clarity Turbid H Clear Urine pH 5.5 5.0-9.0 Urine Specific [place] 1.018 1.001-1.035 Urine Protein Negative Negative Urine Ketones Negative Negative Urine Blood Negative Negative /uL Urine Nitrite Negative Negative Urine Bilirubin Negative Negative Urine Urobilinogen Normal Negative mg/dL Urine Leukocyte Esterase 3+ Negative /uL Urine RBC 4 0 - 4 /hpf Urine Microscopic WBC 26 H 0-5 /HPF Urine Squamous Epithelial Cells Few <5 /hpf Urine Bacteria None seen None Seen /hpf Urine Mucus Few None Seen Urine Glucose Normal Normal mg/dL Assessment Episodic event from foggy, blurry vision, TIA/stroke, not evident in the MR brain scan ? Partial complex seizure ? Hypertension encephalopathy Reports brain aneurysm Brief headache Moderate carotid stenosis Plan/Recommendation Monitoring Supportive treatment Telemetry EEG Aspirin 81 mg daily Lipitor 20 mg daily More recommendation per clinical course Follows up with me on discharge Okay to discharge patient was home after EEG This medical document was created using an electronic medical record system with [employer] computerized dictation system. Although this document has been carefully reviewed, there may still be some phonetic and typographical errors. These areas are purely typographical due to imperfections of the software programs, and do not reflect any compromise in the patient's medical care. Plan discussed with: Patient, Other LILI MYLES MD Jun 03, 2024 23:22
[2024-06-04] VITALS (7 sets, daily range): BP systolic 134–171; BP diastolic 62–77; PULSE 20–70; RESP 18–20; TEMP 37.1; O2SAT 97–98
--- NOTE | 2024-06-04 09:14 | DVHPN2 ---
Progress Note - Dictate Date Seen: Jun 04, 2024 Medical Necessity Reason Pt with a Central, PICC or Fol: No Subjective Ms. Love he was 89 years old right-handed female with a history of hypertension, brain aneurysm, the patient was came to the [facility] on 06/02/2024 with a chief complaint of headache. When she came to the hospital, her blood pressure was extremely high, she was had fever. I have seen and examined the patient, I have discussed with her nurse, she was doing fine, alert and fully oriented, no new complaints Dr. Woodward and I have had a discussion with her about her problem and likely diagnosis Urinalysis, 05/30/2024: WBC: 26, urine leukocyte esterase: 3+ CBC, 06/01/2024: Unremarkable BUN/CR, 06/01/2024: 20/1.09 Liver function tests, 06/01/2024: Unremarkable Vitamin B12, 05/31/2024: 303 TSH, 05/31/24: 3.0 Carotid Doppler, 05/31/2024: 1. Suggestion of 50-69% narrowing at the right carotid bulb based on the ICA/ CCA ratio. 2. Less than 50% narrowing at the left carotid bulb. MRI brain, 05/31/2024: No evidence of acute intracranial abnormalities vital signs Vital Sign Date Time Temp Pulse Resp B/P (MAP) Pulse Ox O2 Delivery O2 Flow Rate FiO2 06/04/24 08:45 97.9 67 20 163/77 (105) 97 97.9 06/03/24 20:00 Room Air* 0 21 Total Intake and Output 06/03/24 06/03/24 06/04/24 15:00 23:00 07:00 Intake Total 725 ml 600 ml Balance 725 ml 600 ml medications Current Medications Medications Dose Ordered Sig/Hector Route Start Time Stop Time Status Last Admin Dose Admin Aspirin 81 mg DAILY PO 05/31/24 10:00 06/03/24 08:51 81 MG Valsartan 160 mg DAILY PO 05/31/24 10:00 06/03/24 08:52 160 MG Acetaminophen 500 mg Q4HPRN PRN PO 05/31/24 00:30 Acetaminophen/ Hydrocodone Bitart 1 tab Q4HPRN PRN PO 05/31/24 00:30 Morphine Sulfate 1 mg Q4HPRN PRN IV 05/31/24 00:30 Atorvastatin Calcium 40 mg HS PO 05/31/24 22:00 06/03/24 21:41 40 MG Pantoprazole Sodium 40 mg DAILY IV 06/01/24 10:00 06/03/24 08:50 40 MG objective General: the patient is well developed and nourished. No acute distress. MENTAL STATUS: Awake and alert. Oriented to person, place, time and general circumstances. Able to give personal history SPEECH, LANGUAGE, HIGHER CORTICAL FUNCTION: no aphasia or dysathria. CRANIAL NERVES: Pupils are equal, round and reactive. EOMs full and conjugate. No nystagmus. Facial sensation intact in all three divisions bilaterally. Mandibular strength intact. Facial muscles symmetrical and strength intact. SENSATION: Sensation to touch and pinprick is normal. MOTOR: Normal tone in the upper and lower extremity. Normal muscle bulk. No fasciculations. No abnormal movements or posturing. Muscle strength of the major groups in the upper extremities is 5/5. Muscle strength of the major groups in the lower extremities is 5/5. REFLEXES: Deep tendon reflexes are symmetrical. No pathological reflexes. CEREBELLAR/COORDINATION: Finger to nose is normal bilaterally. GAIT/STATION: deferred laboratory and microbiology Laboratory Tests 06/01/24 07:48 Test 06/01/24 07:48 Range/Units Serum Glucose 90 74-106 mg/dL Problem List Episodic event from foggy, blurry vision, TIA/stroke, not evident in the MR brain scan ? Partial complex seizure ? Hypertension encephalopathy Reports brain aneurysm Brief headache Moderate carotid stenosis Assessment/Plan Monitoring Supportive treatment Telemetry EEG Aspirin 81 mg daily Lipitor 20 mg daily More recommendation per clinical course Follows up with me on discharge (I have notified my office) Okay to discharge patient was home after EEG This medical document was created using an electronic medical record system with [employer] dictation system. Although this document has been carefully reviewed, there may still be some phonetic and typographical errors. These areas are purely typographical due to imperfections of the software programs, and do not reflect any compromise in the patient's medical care Prognosis poor Dietary Evaluation Review Recommendations by RD: Dietary education by RD Comments: 1) If patient remains NPO > 7 days, consider EN/TPN to meet at least 75% estimated needs 2) Advance to 2g Na diet when medically feasible, pending [employer] approval 3) Refer to outpatient RD for weight management 4) Follow-up with cardiology and neurology 5) Continue to monitor I&O, labs, and skin integrity Expected Outcomes/Goals: 1) patient to receive nutrition within 7 days of NPO status 2) labs to improve 3) diet to advance 4) f/u in 2-3 days Plan discussed with: Patient, Other LILI MYLES MD Jun 04, 2024 09:14
--- NOTE | 2024-06-04 10:40 | DVHPN2 ---
Reviewed: Care Plan, H&P, Labs, Medications, Previous Orders, Radiology Changes from previous H/P or p: No Changes Eyes: Vision change Objective Vitals Vital Signs Date Time Temp Pulse Resp B/P (MAP) Pulse Ox O2 Delivery O2 Flow Rate FiO2 06/04/24 10:03 163/77 06/04/24 08:45 97.9 67 20 97 97.9 06/03/24 20:00 Room Air* 0 21 Intake/Output Intake and Output 06/04/24 07:00 Intake Total 1325 ml Balance 1325 ml Intake Oral 1325 ml # Voids 7 # Bowel Movements 2 Medications Current Medications Medications Dose Ordered Sig/Hector Route Start Time Stop Time Status Last Admin Dose Admin Aspirin 81 mg DAILY PO 05/31/24 10:00 06/04/24 10:03 81 MG Valsartan 160 mg DAILY PO 05/31/24 10:00 06/04/24 10:03 160 MG Acetaminophen 500 mg Q4HPRN PRN PO 05/31/24 00:30 Acetaminophen/ Hydrocodone Bitart 1 tab Q4HPRN PRN PO 05/31/24 00:30 Morphine Sulfate 1 mg Q4HPRN PRN IV 05/31/24 00:30 Atorvastatin Calcium 40 mg HS PO 05/31/24 22:00 06/03/24 21:41 40 MG Pantoprazole Sodium 40 mg DAILY IV 06/01/24 10:00 06/04/24 10:02 40 MG Laboratory Results Laboratory Tests 06/01/24 07:48 Urinalysis Test 05/30/24 22:15 Urine Color Light-yellow (Yellow) Urine Clarity Turbid (Clear) H Urine pH 5.5 (5.0-9.0) Urine Specific [place] 1.018 (1.001-1.035) Urine Protein Negative (Negative) Urine Ketones Negative (Negative) Urine Blood Negative /uL (Negative) Urine Nitrite Negative (Negative) Urine Bilirubin Negative (Negative) Urine Urobilinogen Normal mg/dL (Negative) Urine Leukocyte Esterase 3+ /uL (Negative) Urine RBC 4 /hpf (0 - 4) Urine Microscopic WBC 26 /HPF (0-5) H Urine Squamous Epithelial Cells Few /hpf (<5) Urine Bacteria None seen /hpf (None Seen) Urine Mucus Few (None Seen) Urine Glucose Normal mg/dL (Normal) Labs and/or images reviewed: Labs reviewed by me, Image(s) reviewed by me Assessment/Plan Assessment/Plan Blurry vision rule out stroke: CT head negative, MRI brain negative, 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 Cuellar pending, echo 65 percent ejection fraction, EEG pending TIA/ Stroke History of frontal brain aneurysm Hypertension Moderate Carotid stenosis Chronic current smoker: Counseling Flu test negative COVID test negative Mild UTI Plan discussed with: Patient Date of Service: Jun 04, 2024 Billing Provider: ROSITA SUBRAMANIAN MD Common Visit Codes: [id number] INP/OBS CARE(HIGH) ROSITA SUBRAMANIAN MD Jun 04, 2024 10:40
--- NOTE | 2024-06-04 10:45 | DVHDS2 ---
Discharge Summary Date of Admission May 30, 2024 at 23:49 Date of Discharge: Jun 04, 2024 Admitting Diagnosis Blurry vision Wounds: None Labs/Diagnostic Data: Laboratory Results Test 06/01/24 07:48 05/31/24 03:52 05/31/24 01:23 05/31/24 01:22 White Blood Count 4.4 10^3/uL (4.4-10.8) Red Blood Count 4.52 10^6/uL (4.0-5.20) Hemoglobin 12.6 g/dL (12.2-16.2) Hematocrit 37.4 % (36.0-46.0) Mean Corpuscular Volume 82.8 fL (80.0-100.0) Mean Corpuscular Hemoglobin 27.9 pg (28.0-32.0) Mean Corpuscular Hemoglobin Concent 33.6 g/dL (32.0-36.0) Red Cell Distribution Width 14.4 % (11.8-14.3) Platelet Count 191 10^3/uL (140-450) Mean Platelet Volume 9.4 fL (6.9-10.8) Neutrophils (%) (Auto) 63.0 % (37.0-80.0) Lymphocytes (%) (Auto) 25.5 % (10.0-50.0) Monocytes (%) (Auto) 6.9 % (0.0-12.0) Eosinophils (%) (Auto) 4.0 % (0.0-7.0) Basophils (%) (Auto) 0.6 % (0.0-2.0) Neutrophils # (Auto) 2.8 10 ^3/uL (1.6-8.6) Lymphocytes # (Auto) 1.1 10 ^3/uL (0.4-5.4) Monocytes # (Auto) 0.3 10 ^3/uL (0-1.3) Eosinophils # (Auto) 0.2 10 ^3/uL (0-0.8) Basophils # (Auto) 0 10 ^3/uL (0-0.2) Nucleated Red Blood Cells 0.3 % Sodium Level 139 mmol/L (136-145) Potassium Level 4.5 mmol/L (3.5-5.1) Chloride Level 108 mmol/L (98-107) Carbon Dioxide Level 24 mmol/L (20-31) Anion Gap 7 (5-15) Blood Urea Nitrogen 20 mg/dL (9-23) Creatinine 1.09 mg/dL (0.550-1.02) Glomerular Filtration Rate Calc 51 mL/min (>90) BUN/Creatinine Ratio 18.3 (10.0-20.0) Serum Glucose 90 mg/dL (74-106) Calcium Level 9.5 mg/dL (8.7-10.4) Total Bilirubin 0.6 mg/dL (0.2-1.0) Aspartate Amino Transferase (AST) 14 U/L (13-40) Alanine Aminotransferase (ALT) 11 U/L (7-40) Alkaline Phosphatase 100 U/L (46-116) Total Protein 6.2 g/dL (5.7-8.2) Albumin 4.1 g/dL (3.2-4.8) Prothrombin Time 10.9 sec (9.3-11.8) Prothrombin Time INR 1.03 (0.9-1.15) Activated Partial Thromboplast Time 28.9 SEC (24.5-34.5) Hemoglobin A1c 5.4 % A1C (<5.7) Uric Acid 4.3 mg/dL (3.1-7.8) Magnesium Level 1.8 mg/dL (1.6-2.6) Troponin I High Sensitivity 20 ng/L (</=34) B-Type Natriuretic Peptide 60.93 pg/mL (0-100) Vitamin B12 Level 303 pg/mL (211-911) Vitamin D 25-Hydroxy 48.0 ng/mL (30.0-100) Thyroid Stimulating Hormone (TSH) 3.04 uIU/mL (0.55-4.78) Influenza Type A Antigen Negative (Negative) Influenza Type B Antigen Negative (Negative) SARS-CoV-2 Antigen (Rapid) Negative (NEGATIVE) Test 05/30/24 22:15 Urine Color Light-yellow (Yellow) Urine Clarity Turbid (Clear) Urine pH 5.5 (5.0-9.0) Urine Specific [place] 1.018 (1.001-1.035) Urine Protein Negative (Negative) Urine Ketones Negative (Negative) Urine Blood Negative /uL (Negative) Urine Nitrite Negative (Negative) Urine Bilirubin Negative (Negative) Urine Urobilinogen Normal mg/dL (Negative) Urine Leukocyte Esterase 3+ /uL (Negative) Urine RBC 4 /hpf (0 - 4) Urine Microscopic WBC 26 /HPF (0-5) Urine Squamous Epithelial Cells Few /hpf (<5) Urine Bacteria None seen /hpf (None Seen) Urine Mucus Few (None Seen) Urine Glucose Normal mg/dL (Normal) Other Laboratory Tests 06/01/24 07:48 Brief Hx & Hospital Course: 51-year-old female with a history of hypotension frontal brain aneurysm chronic current smoker came in complaining of blurry vision and fogginess. No headache no nausea vomiting. CT head negative MRI brain negative carotid ultrasound showed 50-69 percent right ICA stenosis. Echo 65 percent ejection fraction seen by Neurology Dr. Cuellar EEG pending flu test negative COVID test negative mild UTI treated reviewed all the home medications cleared for discharge by Neurology. Dr. Cuellar we will follow up in the EEG report. Discharged home. Reviewed home medications. No new medications. The patient is ambulatory with stable vital signs at the time of discharge Consults/Reason for consult Neurology Dr. Cuellar Operations or Procedures CT head EEG Condition at Discharge: Fair Final Diagnosis/Problems List Blurry vision rule out stroke: CT head negative, MRI brain negative, 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 Cuellar pending, echo 65 percent ejection fraction, EEG pending TIA/ Stroke History of frontal brain aneurysm Hypertension Moderate Carotid stenosis Chronic current smoker: Counseling Flu test negative COVID test negative Mild UTI Discharge Disposition: Home Discharge Instruct/Medications Diet: Cardiac 2g Na,low cholest Activity: Light activity Follow Up/Referral: Resume all previous home medications Follow up with the primary Dr Follow up with the neurologist Dr. Cuellar in 10 days Medications: None 35 (Time taken for discharge summary 35 minutes) Discharge Statement: "Patient was advised to return to the ER or call 911 if any headaches, dizziness, shortness of breath, chest pain, abdominal pain, bleeding, fevers, or worsening of medical condition. Patient was counseled about treatment plan, medications, possible side effects, patientverbalized understanding. All questions were answered to the best of my ability. This discharge took greater then 30 minutes in planning, reviewing documentation, counseling the patient, and discussing with other team members." ASSESSMENT ASSESSMENT Hospital Course Uneventful Assessment Blurry vision rule out stroke: CT head negative, MRI brain negative, 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 Cuellar pending, echo 65 percent ejection fraction, EEG pending TIA/ Stroke History of frontal brain aneurysm Hypertension Moderate Carotid stenosis Chronic current smoker: Counseling Flu test negative COVID test negative Mild UTI Date of Service: Jun 04, 2024 Billing Provider: ROSITA SUBRAMANIAN MD Common Visit Codes: 14889-UHA/OBS DISCH DAY >30min ROSITA SUBRAMANIAN MD Jun 04, 2024 10:45
[2024-06-04] MEDS: cloNIDine HCL 0.1 MG TAB PO PRN (14:01)
--- NOTE | 2024-06-07 00:10 | DVHEEG2 ---
Neurology EEG Procedural Note Procedural Note EXAM DATE: 06/04/2024 REFERRING DOCTOR: Dr. Myles TECHNIQUE: Eighteen channels of EEG, 2 channels of EOG, and 1 channel of EKG were recorded using the [employer] 10/20 system. CLINICAL DATA: The patient was referred for an EEG evaluation for the evidence of seizure disorder. MEDICATIONS: See the chart BACKGROUND ACTIVITY: There was significant amount of artifacts in the recording. While the patient was awake, the background activity consisted of well regulated 10 Hz rhythmic waveforms, symmetrically distributed over both posterior quadrants and was reactive to eye opening. ACTIVATION: Hyperventilation: Not done Photic Stimulation: No photic convulsive response Sleep: Not seen IMPRESSION: This is a normal EEG. No focal, lateralized, or epileptiform features are noted. If clinically indicated to rule out a seizure disorder, recommend repeat EEG with sleep deprivation. The EKG channel showed a regular heart rate of 60/[place] [address] LILI MYLES MD June 07, 2024 00:10
== END 2024-06-04 17:30 | disposition home or self-care (01) | DRG 78 ==
LOC: ER 16:49 → EDBD 23:49 → OVERFLOW 23:49 → TELE-WESTW 05-31 15:30
PROVIDERS: ADMIT Family Medicine; ATTEND Family Medicine
DX: I67.4 Hypertensive encephalopathy (principal); N17.9 Acute kidney failure, unspecified; N30.00 Acute cystitis without hematuria; I16.0 Hypertensive urgency; Z20.822 Contact with and (suspected) exposure to COVID-19; F17.200 Nicotine dependence, unspecified, uncomplicated; Z79.899 Other long term (current) drug therapy; Z71.6 Tobacco abuse counseling; Z83.3 Family history of diabetes mellitus; Z82.49 Family history of ischemic heart disease and other diseases of the circulatory system; Z79.82 Long term (current) use of aspirin
CPT/HCPCS: 36415; 70450; 70551; 71045; 80053; 81001; 82306; 82607; 83036; 83735; 83880; 84443; 84484; 84550; 85025; 85610; 85730; 87426; 87804; 93005; 93306; 93886; 93975; 95819; 96365; G0378; J2470